=== PATIENT | male | born 1985 | race Two or more races ===

== ENCOUNTER → 2018-12-01 | Day surgery (SDC) | payer OTHER ==
[~2018-12-01] VITALS: Ht 175.3 cm; Wt 95.4 kg
[~2018-12-01] MED LIST: BUPIVACAINE MPF 0.25% 30 ML VIAL. ONE; BUPIVACAINE-EPI 0.25%-1:200000 MPF 30 ML VIAL. INJ ONE; CHOL10003 PO; CLINDAMYCIN 900MG PREMIX 50 ML IV ONE; DEXAMETHASONE SOD PHOS 4 MG/ML VIAL ONE; EPINEPHrine VIAL 30 MG/30 ML VIAL ONE; HYDROmorphone 2 MG/ML VIAL IV PRN; IV RINGERS,LACTATED 1000ML 1,000 ML IV SCH; LIDOCAINE 1% PF 2 ML VIAL. ID PRN; LIDOCAINE 2% PF 5 ML VIAL. ONE; MIDAZOLAM HCL/PF 2 MG/2 ML VIAL. ONE; MORPHINE SULFATE 2 MG/ML VIAL. IV PRN; ONDANSETRON PF 4 MG/2 ML VIAL. IV PRN; ONDANSETRON PF 4 MG/2 ML VIAL. ONE; OXYC1TAB19 PO; PROCHLORPERAZINE 10 MG/2 ML VIAL. IV PRN; PROPOFOL 20 ML IV ONE; SEVOFLURANE 61 TO 120 MINUTES. IH ONE; VANCOMYCIN 1GM IVPB FOR OMNI 250 ML IV PRN; fentaNYL PF VIAL 100 MCG/2 ML VIAL IV PRN; fentaNYL PF VIAL 100 MCG/2 ML VIAL ONE; oxyCODONE/APAP 7.5/325 1 TAB TABLET PO ONE
--- NOTE | 2018-12-01 10:03 | DISCH ---
DISCHARGE INSTRUCTIONS Condition on Discharge Condition on Discharge: Stable Activity After Discharge Activity Instructions for Disc: Other, see below (walk with the assistance of crutches until limping resolves and strength adequate) Weight Bearing Status after Di: As tolerated Diet after Discharge Diet after Discharge: Regular Wound Incision Care Wound/Incision Care: Change dressing (removed dressing in 2 days may then shower no soaking until follow-up visit) Community/Resources/Services Services at Discharge: PT EVALUATE & TREAT (tender to ACL protocol alex ghtbearing as tolerated closed chain exercises motion as tolerated crutch ambulation until strength allows walking without limping) Contacting the [facility] after MIRYAM Call your doctor for: Concerns you may have Follow-Up Follow up with: after Diana 2 weeks STANISLAV HARPER MD Dec 01, 2018 10:02
--- NOTE | 2018-12-01 12:29 | PDOC4 ---
Operative Note Operative Note Date of surgery: 12/01/2018 Preoperative diagnosis: ACL reinjury status post previous reconstruction Postoperative diagnosis: Same plus multiple cartilage loose bodies Operative procedure: Left knee arthroscopy revision ACL allograft reconstruction and removal multiple loose bodies Surgeon: Diana Assist: Kendrick Osorio Anesthesia: Gen. Estimated blood loss: 20 mL Complications: None Operative indications: Please see my clinic note for detailed operative indications note that Mr. Wynn had previous ACL reconstruction elsewhere a couple of years ago and had a recent injury with ongoing instability with MRI confirmation of graft rupture. I had gone over with him risks benefits postoperative course of revision surgery addressing any other pathology concurrently and the possibility of infection continued instability or blood vessel damage premature arthritis medical or other anesthetic consultations among others all his questions were answered he wishes to proceed with surgical evaluation and treatment. Operative text: Patient was identified procedure verified patient placed in the supine position on the operating table. After adequate amounts of general anesthesia were administered left lower extremity was prepped and draped in standard sterile fashion using a thigh tourniquet. After timeout was performed patient procedure identified and verified the left leg was examined under anesthesia found to have increased laxity with a soft endpoint to Sarah and anterior drawer testingassociated ligaments and stability was noted. The left lower extremity was exsanguinated with Esmarch bandage tourniquet inflated to 250 mmHg a lateral portal was established a medial portal established using spinal needle localization and the knee joint was systematically examined. He was noted to have several large loose cartilaginous bodies in the medial gutter 2 of which were removed through a enlarged medial portal and their largest dimension approximately 2 cm. Some delamination was noted in the trochlear groove but no further instability of cartilage was noted patellar articulation was otherwise stable medial and lateral menisci were probed and found to be intact he was noted to have a insufficient anterior cruciate ligament with disruption at the femoral insertion. The graft was removed with the arthroscopic shaver and bipolar electrocautery. Allograft posterior tibial tendon was sized at a size 9 whip stitched on both ends and placed under tension on the graft master device covered with a wet Ray-Tad sponge. Femoral canal was drilled using the [employer] system at approximately the 1:30 o'clock face position after advancement of the guidewire about a 40 mm tunnel length was noted and was drilled with a flexible drill bit to a size 9 tunnel edges were rasped to avoid any sharp bony edges tibial tunnel was drilled using the [place] tibial guide and likewise any excess tissue was evacuated tunnel edges rasped and the 4 mm drill was advanced through the cortex of the femur. A toggle lock closed loop fixation device 15 mm in diameter was selected the graft was passed in the toggle lock flipped without difficulty tensioning was carried out through 10 flexion and extension cycles with 20 pounds of force placed on the Casperi tensioning device and after tensioning carried out in full extension a 9 x 30 mm excellent shape tibial fastener was placed and backed up with a [employer] titanium-tipped anchor distal on the tibial shaft. Excellent stability full range of motion was restored no graft impingement in the tunnel was noted. The joint was drained of arthroscopic fluid thorough irrigation of the anteromedial incision which was closed with buried Vicryl suture subcuticular Monocryl portals were closed with nylon suture sterile soft dressings were applied toes were noted be warm pink find deflation of tourniquet patient was returned recovery room in stable condition having tolerated procedure well STANISLAV HARPER MD Dec 01, 2018 12:29
[2018-12-01 13:15] VITALS: BP 140/86
--- NOTE | 2018-12-04 15:07 | PATHOLOGY ---
[facility] Accession Number: [id number] . 01 Material submitted: . knee - LOOSE BODY LEFT KNEE. Modifiers: left . 01 Clinical history: . ACL graft tear . 02 Diagnosis: Segments of cartilage, left knee: - Cartilaginous loose bodies. 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 02 Electronically signed: . Nicanor Tiwari MD, Pathologist NPI- [id number] . 01 Gross description: . The specimen is received in formalin, labeled "Bert Wynn, loose body left knee", are three irregular fragments of philip-white firm tissue ranging from 1.1 cm up to 2.2 cm in greatest dimension and measuring 2.2 x 1.4 x 0.2 cm in aggregate. Sectioning reveals a gritty marina-white homogeneous cut surface. Representatively submitted in A1. ([facility]; 12/01/2018) [facility] 12/04/2018 1024 Local . 02 Pathologist provided ICD-10: M23.42 . 02 CPT . 658648 Specimen Comment: A courtesy copy of this report has been sent to Specimen Comment: [phone], . Specimen Comment: Report sent to / DR GORDON Performed at: 01 [facility] [address], [place] [id number] MD Santosh Jackson MD Phone: [phone] [facility]formed [facility]: [facility] [address] [place], [place] [id number] MD Nicanor Tiwari MD Phone: [phone]
== END ==
LOC: SURG 08:17
PROVIDERS: ATTEND Orthopaedic Surgery
DX: S83.512A Sprain of anterior cruciate ligament of left knee, initial encounter (principal); Z98.890 Other specified postprocedural states; Z88.0 Allergy status to penicillin; X58.XXXA Exposure to other specified factors, initial encounter; Y93.89 Activity, other specified; Y92.89 Other specified places as the place of occurrence of the external cause; Y99.8 Other external cause status
CPT/HCPCS: 29888; 88304; 97161; A7015; C1713; C1762; J0171; J1100; J2001; J2250; J2405; J2704; J3010; J3490